=== PATIENT | male | born 1975 | race Caucasian/White ===

== ENCOUNTER 2022-12-16 21:16 | Emergency (ER) | payer SELFPAY ==
[2022-12-16 21:32] VITALS: TEMP 97.3
--- NOTE | 2022-12-16 21:49 | ERPHSYRPT ---
- History of Present Illness Time Seen by Provider: 12/16/22 21:49 Historian: patient Exam Limitations: no limitations Patient Subjective Stated Complaint: pt states that I have this pain that feels like a balloon Triage Nursing Assessment: ambulated into the er; pt is axo x4; c/o RUQ pain; denies N/V/D; skin PDW; no respiratory distress present; mucus membranes pink and moist Physician History: This a 47-year-old white male patient who has had no abdominal surgeries in the past and presents with intermittent right upper quadrant pain for 2 months which worsened over the last 24 hours. There is been no nausea or vomiting. He does feel bloated belching gassy. He denies chest pain. He does not have shortness of breath. Timing/Duration: intermittent, worse (Worse today), other (Intermittently for 1 month) Pain Radiation: no radiation Severity of Pain-Max: moderate Severity of Pain-Current: none Associated Symptoms: denies symptoms Previous symptoms: same symptoms as today Allergies/Adverse Reactions: No Known Drug Allergies Allergy (Unverified 12/16/22 21:25) Home Medications: No Reportable Medications [No Reported Medications] 12/16/22 [History] Hx Tetanus, Diphtheria Vaccination/Date Given: No Hx Influenza Vaccination/Date Given: No Hx Pneumococcal Vaccination/Date Given: No Travel Risk - International Travel Have you traveled outside of the country in past 3 weeks: No - Coronavirus Screening Are you exhibiting any of the following symptoms?: No Close contact with a COVID-19 positive Pt in past 14-21 Days: No - Vaccine Status Have you recieved a Covid-19 vaccination: No - Review of Systems Constitutional: No Symptoms Eyes: No Symptoms Ears, Nose, & Throat: No Symptoms Respiratory: No Symptoms Cardiac: No Symptoms Abdominal/Gastrointestinal: Abdominal Pain (Right upper quadrant) Genitourinary Symptoms: No Symptoms Musculoskeletal: No Symptoms Skin: No Symptoms Neurological: No Symptoms Psychological: No Symptoms Endocrine: No Symptoms Hematologic/Lymphatic: No Symptoms Immunological/Allergic: No Symptoms All Other Systems: Reviewed and Negative - Past Medical History Pertinent Past Medical History: No - Past Surgical History Past Surgical History: Yes Gastrointestinal: Hernia Repair - Social History Smoking Status: Current every day smoker How long have you smoked: 25 years Exposure to second hand smoke: Yes Drug Use: none Patient Lives Alone: No - Nursing Vital Signs Nursing Vital Signs: Initial Vital Signs Blood Pressure 139/104 12/16/22 21:25 O2 Sat by Pulse Oximetry 96 12/16/22 21:25 Pain Scale Pain Intensity 4 - Physical Exam General Appearance: no apparent distress, alert, anxiety Eye Exam: PERRL/EOMI, eyes nml inspection Ears, Nose, Throat Exam: normal ENT inspection, moist mucous membranes Neck Exam: normal inspection, non-tender, supple, full range of motion Respiratory Exam: normal breath sounds, lungs clear, airway intact, No chest tenderness, No respiratory distress Cardiovascular Exam: regular rate/rhythm, normal heart sounds, normal peripheral pulses Gastrointestinal/Abdomen Exam: soft, normal bowel sounds, tenderness (Right upper quadrant), guarding (Right upper quadrant) Rectal Exam: not done Back Exam: normal inspection, normal range of motion, No CVA tenderness, No vertebral tenderness Extremity Exam: normal inspection, normal range of motion, pelvis stable Neurologic Exam: alert, oriented x 3, cooperative, traffic 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 II-XII nml as tested, normal mood/affect, nml cerebellar function, nml station & gait, sensation nml Skin Exam: normal color, warm, dry Lymphatic Exam: No adenopathy SpO2 Interpretation: normal SpO2: 97 O2 Delivery: Room Air - Course Nursing assessment & vital signs reviewed: Yes Ordered Tests: Active Orders 24 hr Category Date Time Status IV Insertion STAT Care 12/16/22 21:40 Active ABDOMEN AND PELVIS W/0 CONTRAS [CT] Stat Exams 12/16/22 22:35 Completed AMYLASE Stat Lab 12/16/22 22:30 Completed CBC W DIFF Stat Lab 12/16/22 22:30 Completed CMP Stat Lab 12/16/22 22:30 Completed LIPASE Stat Lab 12/16/22 22:30 Completed UA W/RFX UR CULTURE Stat Lab 12/16/22 21:40 Completed Medication Summary Discontinued Medications Generic Name Dose Route Start Last Admin Trade Name Freq PRN Reason Stop Dose Admin Hydromorphone HCl 1 mg 12/16/22 22:08 12/16/22 22:15 Hydromorphone 1 Mg/1ml Inj IV 12/16/22 22:09 1 mg STAT ONE Administration Hydromorphone HCl Confirm 12/16/22 22:12 Hydromorphone 1 Mg/1ml Inj Administered 12/16/22 22:13 Dose 1 mg .ROUTE .STK-MED ONE Sodium Chloride 1,000 mls @ 999 mls/hr 12/16/22 22:08 12/16/22 22:16 Sodium Chloride 0.9% 1000 Ml IV 12/16/22 23:08 999 mls/hr .Q1H1M STA Administration Sodium Chloride Confirm 12/16/22 22:12 Sodium Chloride 0.9% 1000 Ml Administered 12/16/22 22:13 Dose 1,000 mls @ ud .ROUTE .STK-MED ONE Ondansetron HCl 4 mg 12/16/22 22:08 12/16/22 22:15 Ondansetron Hcl 4 Mg/2 Ml Vial IV 12/16/22 22:09 4 mg STAT ONE Administration Ondansetron HCl Confirm 12/16/22 22:12 Ondansetron Hcl 4 Mg/2 Ml Vial Administered 12/16/22 22:13 Dose 4 mg .ROUTE .STK-MED ONE Lab/Rad Data: Laboratory Result Diagrams 12/16/22 22:30 12/16/22 22:30 Laboratory Results 12/16/22 12/16/22 12/16/22 Range/Units 22:30 22:30 21:40 WBC 8.9 (4.0-10.5) x10^3/uL RBC 5.12 (4.1-5.6) x10^6/uL Hgb 16.3 (12.5-18.0) g/dL Hct 46.3 (42-50) % MCV 90.4 (78-100) fL MCH 31.8 (26-32) pg MCHC 35.2 (32-36) g/dL RDW 12.3 (11.5-14.0) % Plt Count 215 (150-450) x10^3/uL MPV 10.0 (7.5-11.0) fL Gran % 60.8 (36.0-66.0) % Immature Gran % (Auto) 0.5 H (0.00-0.4) % Nucleat RBC Rel Count 0.0 (0.00-0.1) % Eos # (Auto) 0.32 (0-0.5) x10^3/uL Immature Gran # (Auto) 0.04 H (0.00-0.03) x10^3u/L Absolute Lymphs (auto) 2.51 (1.0-4.6) x10^3/uL Absolute Monos (auto) 0.56 (0.0-1.3) x10^3/uL Absolute Nucleated RBC 0.00 (0.00-0.01) x10^3u/L Lymphocytes % 28.3 (24.0-44.0) % Monocytes % 6.3 (0.0-12.0) % Eosinophils % 3.6 (0.00-5.0) % Basophils % 0.5 (0.0-0.4) % Absolute Granulocytes 5.41 (1.4-6.9) x10^3/uL Basophils # 0.04 (0-0.4) x10^3/uL Sodium 136 L (137-145) mmol/L Potassium 3.5 (3.5-5.1) mmol/L Chloride 106 (98-107) mmol/L Carbon Dioxide 22 (22-30) mmol/L Anion Gap 11.5 (5-15) MEQ/L BUN 13 (9-20) mg/dL Creatinine 0.88 (0.66-1.25) mg/dL Estimated GFR > 60.0 ML/MIN Glucose 90 (74-106) mg/dL Calcium 8.2 L (8.4-10.2) mg/dL Total Bilirubin 0.40 (0.2-1.3) mg/dL AST 27 (17-59) U/L ALT 31 (0-50) U/L Alkaline Phosphatase 70 (38-126) U/L Serum Total Protein 5.9 L (6.3-8.2) g/dL Albumin 3.4 L (3.5-5.0) g/dL Amylase 37 (30-110) U/L Lipase 43 (23-300) U/L Urine Color Yellow (Yellow) Urine Appearance Clear (Clear) Urine pH 6.5 (4.6-8.0) Ur Specific [place] 1.025 (1.005-1.030) Urine Protein Negative (Negative) Urine Glucose (UA) Negative (Negative) mg/dL Urine Ketones Negative (Negative) Urine Blood Negative (Negative) Urine Nitrite Negative (Negative) Urine Bilirubin Negative (Negative) Urine Urobilinogen 1.0 A (0.2) mg/dL Ur Leukocyte Esterase Negative (Negative) U Hyaline Cast (Auto) NONE SEEN (0-2) /LPF Urine Microscopic RBC 0-2 (0-5) /HPF Urine Microscopic WBC 0-2 (0-5) /HPF Ur Epithelial Cells None Seen (None Seen) /HPF Urine Bacteria None Seen (None Seen) /HPF Urine Culture Reflexed NO (NO) - Progress Progress: improved, pain not gone completely, re-examined Progress Note: 12/16/22 23:25 CT scan of the abdomen pelvis without contrast shows mild hepatomegaly otherwise normal CT scan of the abdomen pelvis without contrast. This was interpreted by the radiologist and I reviewed the impression. This patient's medical issue is 1 of moderate complexity. The level of complexity and the work-up performed is based on review of the patient's past medical history, review of the patient's medication list, review of the patient's drug allergy list, history of present illness and physical findings on examination. The work-up in this patient includes placement of an intravenous line, infusion of saline solution, infusion of Zofran, infusion of Dilaudid IV, CBC, CMP, amylase, lipase, urinalysis. I reviewed the results of the above- stated work-up. There is no evidence of any acute abnormality. Patient will be discharged to home with 2 take-home Sar[place] pain medications and instructions to avoid fatty greasy spicy foods and to call his primary care provider tomorrow morning, 12/17/2022, to make arrangements for further evaluation management. 12/16/22 23:27 Counseled pt/family regarding: lab results, diagnosis, need for follow-up, rad results Medical Desision Making - Independent Historian Additional History obtained from: Spouse - Diagnostic Testing Diagnostic test were ordered, analyzed, and reviewed by me: Yes Radiological Interpretation: Reviewed by me, Teleradiologist Report - Risk of complications Minimal Risk: Minimal risk of morbidity - Departure Departure Disposition: Home Clinical Impression: Right upper quadrant abdominal pain, Hepatomegaly Condition: Stable Critical Care Time: No Additional Instructions: Avoid fatty greasy spicy foods. Drink plenty of clear liquids. Call your primary care provider tomorrow morning, 12/17/2022, to make arrangements for further evaluation and management.
[2022-12-16 21:54] LABS: Appearance Clear (Clear); Bacteria None Seen /HPF (None Seen); Bilirubin Negative (Negative); Blood Negative (Negative); Epithelial Cells None Seen /HPF (None Seen); Glucose, Urine Negative (Negative); Hyaline Casts NONE SEEN /LPF (0-2); Ketones Negative (Negative); Leukocyte Esterase Negative (Negative); Nitrite Negative (Negative); Ph 6.5 (4.6-8.0); Protein,Urine Dip Negative (Negative); RBC 0-2 /HPF (0-5); Specific Gravity 1.025 (1.005-1.030); WBC 0-2 /HPF (0-5)
[2022-12-16 21:57] LABS: ADD URINE CULTURE? NO (NO)
[2022-12-16] MEDS ORDERED: Hydromorphone 1 mg/ml Injection IV ONE (22:08)
[2022-12-16] MEDS ORDERED: Zofran 4 MG/2 ML VIAL IV ONE (22:08)
[2022-12-16] MEDS ORDERED: Sodium Chloride 0.9% 1000 ML 1,000 ML IV STA (22:08)
[2022-12-16] MEDS ORDERED: Sodium Chloride 0.9% 1000 ML 1,000 ML ONE (22:12)
[2022-12-16] MEDS ORDERED: Zofran 4 MG/2 ML VIAL ONE (22:12)
[2022-12-16] MEDS ORDERED: Hydromorphone 1 mg/ml Injection ONE (22:12)
[2022-12-16 22:32] LABS: Absolute Neutrophil Ct (ANC) 5.41 x10^3/uL (1.4-6.9); BASOPHIL % 0.5 % (0.0-0.4); Basophil (Absolute #) 0.04 x10^3/uL (0-0.4); Eosinophil % 3.6 % (0.00-5.0); Eosinophil (Absolute #) 0.32 x10^3/uL (0-0.5); Hematocrit 46.3 % (42-50); Hemoglobin 16.3 g/dL (12.5-18.0); IMMATURE GRAN # 0.04 x10^3u/L (0.00-0.03); IMMATURE GRAN % 0.5 % (0.00-0.4); Lymphocyte (Absolute #) 2.51 x10^3/uL (1.0-4.6); Lymphocytes % 28.3 % (24.0-44.0); Mean Cell Volume 90.4 fL (78-100); Mean Corpuscular Hemoglobin 31.8 pg (26-32); Mean Corpuscular Hgb Concent. 35.2 g/dL (32-36); Monocyte (Absolute #) 0.56 x10^3/uL (0.0-1.3); Monocytes % 6.3 % (0.0-12.0); Neutrophil % 60.8 % (36.0-66.0); Platelet Count 215 x10^3/uL (150-450); Red Blood Count 5.12 x10^6/uL (4.1-5.6); Red Cell Distribution Width 12.3 % (11.5-14.0); White Blood Count 8.9 x10^3/uL (4.0-10.5)
[2022-12-16 22:45] LABS: ALBUMIN 3.4 g/dL (3.5-5.0); ALKALINE PHOSPHATASE 70 U/L (38-126); AMYLASE 37 U/L (30-110); ANION GAP 11.5 MEQ/L (5-15); BLOOD UREA NITROGEN 13 mg/dL (9-20); CHLORIDE 106 mmol/L (98-107); Calcium 8.2 mg/dL (8.4-10.2); Carbon Dioxide 22 mmol/L (22-30); Creatinine 1 0.88 mg/dL (0.66-1.25); EST GLOMERULAR FILTRATION RATE > 60.0 ML/MIN; Glucose 90 mg/dL (74-106); LIPASE 43 U/L (23-300); Potassium 3.5 mmol/L (3.5-5.1); SGOT/AST 27 U/L (17-59); SGPT/ALT 31 U/L (0-50); SODIUM 136 mmol/L (137-145); Total Protein 5.9 g/dL (6.3-8.2)
--- NOTE | 2022-12-16 23:24 | XRAY ---
CLINICAL HISTORY:RUQ ABD pain COMPARISON:None. TECHNIQUE:CT of the abdomen and pelvis was performed with axial images as well as sagittal and coronal reconstruction images without intravenous contrast. CTDI: 6.5 mGy, DLP 339.67 mGy*cm. FINDINGS: Scan through the lower chest reveals unremarkable lung basis and heart. The liver is of enlarged size and measures 17.5 cm. No focal or diffuse parenchymal abnormality. The spleen, pancreas, adrenal glands are unremarkable. The kidneys are unremarkable. They are normal in size and shape. No calculi or hydronephrosis. The gallbladder is distended and shows no definite stones. There is no evidence of wall thickening/ pericholecystic collection. The ascending colon, the transverse colon, the descending colon, visualized small bowel loops are unremarkable. There is no evidence of significant enlargement of the mesenteric or retroperitoneal lymph nodes. The urinary bladder is unremarkable. The rectosigmoid colon is unremarkable. The prostate is of average size. The pelvic vasculature is unremarkable. No evidence of pelvic lymphadenopathy. No definite bony abnormalities could be depicted. No ascites. IMPRESSION: Mild hepatomegaly, otherwise, unremarkable CT examination for the abdomen and male pelvis. Electronically Signed by: Fran Prieto MD. (12/16/2022 22:22:58 PUBLIC SAFETY OFFICER)
[2022-12-16] MEDS ORDERED: NORCO 5/325 MG PO ONE (23:29)
[2022-12-16] MEDS ORDERED: NORCO 5/325 MG ONE (23:32)
[2022-12-16 23:37] VITALS: BP 131/96; RESP 14; O2SAT 96
[2022-12-16 23:40] VITALS: PULSE 75
== END 2022-12-16 23:50 | disposition home or self-care (01) ==
LOC: ED 21:16
DX: R10.11 Right upper quadrant pain (principal); R16.0 Hepatomegaly, not elsewhere classified; Z28.310 Unvaccinated for COVID-19; Z72.0 Tobacco use
CPT/HCPCS: 36000; 36415; 74176; 80053; 81001; 82150; 83690; 85025; 96360; 96374; 96375; 99284; J1170; J2405; A9270-GY

== ENCOUNTER 2023-01-21 05:57 | Day surgery (SDC) | payer MEDICAID ==
[2023-01-21 06:39] VITALS: RESP 18; TEMP 97.8
[2023-01-21] MEDS ORDERED: Xylocaine-Mpf 2% 5 Ml Vial ONE (06:51)
[2023-01-21] MEDS ORDERED: DIPRIVAN 200 MG/20 ML IV ONE (06:51)
[2023-01-21] MEDS ORDERED: Lactated Ringers 1,000 ML IV SCH (07:00)
--- NOTE | 2023-01-21 08:03 | OP ---
SURGERY DATE/TIME: 01/21/2023 0725 PREOPERATIVE DIAGNOSIS: Right upper quadrant abdominal pain. POSTOPERATIVE DIAGNOSIS: Moderate antral gastritis. PROCEDURE: Esophagogastroduodenoscopy with cold forceps biopsy. SURGEON: Dr. Orozco. ANESTHESIA: Medications were given by the anesthesia department. BRIEF HISTORY: The patient is a 47-year-old white male patient with right upper quadrant abdominal pain that has been going on for more than six weeks. The patient reports that [id number] antacid medications have lost their effect. He has been on omeprazole with some improvement. He has had gallbladder ultrasound and HIDA scan which have been negative for gallbladder disease. The patient was felt to need to have endoscopic evaluation. He was appraised of the risks of the procedure including the risk of perforation, phlebitis, untoward reaction to medication, bleeding, missed lesions, sore throat and vocal cord injury. The patient verbalized his understanding and desired to have the procedure performed. DESCRIPTION OF PROCEDURE: The patient was given the medications by the anesthesia department. He had continuous pulse oximetry, ECG monitoring and intermittent blood pressure monitoring during the examination. He was placed in the left lateral decubitus position. A bite block was placed. The flexible Olympus gastroscope was used to intubate the oropharynx. A view of the larynx was normal. The scope was easily introduced in the esophagus which appeared to be normal throughout its length. The stomach was entered where normal gastric rugal folds were seen and these distended nicely with insufflation of air. The scope was passed along the greater curvature of the stomach to the antrum. There appeared to be some patchy areas of erythema here. The scope is advanced to the pylorus and the pylorus is intubated. The duodenum inspected and found to be normal. The scope is withdrawn towards the stomach. A retroflex view was obtained of the lesser curvature, fundus and cardia regions of the stomach which appeared to be essentially normal. The scope was then redirected towards the gastric antrum and biopsies obtained to rule out the presence of Helicobacter pylori-type organisms. The scope was then removed from the patient who tolerated the procedure well and was sent back to outpatient recovery in good condition.
--- NOTE | 2023-01-21 08:50 | XRAY ---
Indication: Status post endoscopy. Perforation. Comparison: None Two-view abdomen demonstrates minimal/mild air distended small and large bowel loops consistent with recent endoscopy. No focal bowel dilatation, obstruction, or large free air. Solid organs and osseous structures unremarkable.
[2023-01-21 09:20] VITALS: BP 144/104; PULSE 63; O2SAT 97
== END 2023-01-24 09:25 | disposition home or self-care (01) ==
LOC: SDC 05:57
PROVIDERS: ATTEND Family Medicine
DX: K29.70 Gastritis, unspecified, without bleeding (principal); R10.11 Right upper quadrant pain
CPT/HCPCS: 74021; J2704

== ENCOUNTER 2023-09-16 06:56 | Emergency (ER) | payer SELFPAY ==
[2023-09-16] MEDS ORDERED: Norflex 60 MG/2 ML ONE (07:35)
[2023-09-16] MEDS ORDERED: solu-MEDROL ONE (07:35)
[2023-09-16] MEDS ORDERED: Hydromorphone 1 mg/ml Injection ONE (07:35)
[2023-09-16] MEDS ORDERED: Sterile H2O 10 ml IJ ONE (07:35)
[2023-09-16] MEDS ORDERED: ZOFRAN ODT 4 MG ONE (07:35)
--- NOTE | 2023-09-16 07:36 | ERPHSYRPT ---
- History of Present Illness Time Seen by Provider: 09/16/23 07:15 Source: patient, family Exam Limitations: no limitations Patient Subjective Stated Complaint: Back pain Triage Nursing Assessment: Patient ambulated back to ED and transferred self to bed. Patient A+O X3. Patient's skin pink, warm and dry. Patient complains of right lower back pain into right buttock and down right leg 10/10. Patient states the pain started 3 days ago and has gotten worse. Patient denies any trauma or injury. Patient states he has to drive long distances for work and traveled a lot of miles last week in a car. Physician History: This is a 47-year-old white male patient who has significant lower back pain. 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 Approximately 4 to 5 days ago he started having this significant lower back pain. Patient has an appointment to see a chiropractor later today. He could not wait. Patient has no urinary incontinence. He has no bowel incontinence. He has no numbness in his feet. His pain is right side which goes down into his right buttock and into the posterior upper leg. He takes no medications chronically and he has no known drug allergies. Patient did not suffer any acute trauma or fall. Timing/Duration: day(s) (4 to 5 days), worse Method of Injury: other (Long driving trips for his work) Quality: sharp, stabbing Back Pain Location: paraspinous muscles (Lumbar level) Back Pain Radiation: buttocks, upper legs (Posteriorly) Severity of Pain-Max: moderate Severity of Pain-Current: moderate Modifying Factors: Improves With: movement (Worsens) Associated Symptoms: lower back pain, muscle spasms (Lumbar level right side), No urinary incontinence, No loss of bowel control, No constipation, No numbness in legs/feet Previous symptoms: no prior history, no recent treatment Allergies/Adverse Reactions: Milk Containing Products (Dairy) Allergy (Unknown, Verified 09/16/23 07:01) Hx Tetanus, Diphtheria Vaccination/Date Given: No Hx Influenza Vaccination/Date Given: No Hx Pneumococcal Vaccination/Date Given: No Immunizations Up to Date: Yes Travel Risk - International Travel Have you traveled outside of the country in past 3 weeks: No - Emerging Infectious Disease Are you exhibiting symptoms associated with any current EIDs: No - Review of Systems Constitutional: No Symptoms Eyes: No Symptoms Ears, Nose, & Throat: No Symptoms Respiratory: No Symptoms Cardiac: No Symptoms Abdominal/Gastrointestinal: No Symptoms Genitourinary Symptoms: No Symptoms Musculoskeletal: Back Pain (Bar level right side) Skin: No Symptoms Neurological: No Symptoms Psychological: No Symptoms Endocrine: No Symptoms Hematologic/Lymphatic: No Symptoms Immunological/Allergic: No Symptoms All Other Systems: Reviewed and Negative - Past Medical History Pertinent Past Medical History: Yes Neurological History: No Pertinent History ENT History: No Pertinent History Cardiac History: No Pertinent History Respiratory History: No Pertinent History Endocrine Medical History: No Pertinent History Musculoskeletal History: No Pertinent History GI Medical History: GERD History: No Pertinent History Psycho-Social History: No Pertinent History Male Reproductive Disorders: No Pertinent History Other Medical History: immunodeficiency as an infant, 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 - Past Surgical History Past Surgical History: Yes Neuro Surgical History: No Pertinent History Cardiac: No Pertinent History Respiratory: No Pertinent History Gastrointestinal: Hernia Repair Genitourinary: No Pertinent History Musculoskeletal: Other Male Surgical History: No Pertinent History Other Surgical History: bilateral wrist , 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 - Social History Smoking Status: Current every day smoker How long have you smoked: 30 years Exposure to second hand smoke: Yes Drug Use: none Patient Lives Alone: No - Nursing Vital Signs Nursing Vital Signs: Initial Vital Signs Temperature 97.2 F 09/16/23 07:02 Pulse Rate 65 09/16/23 07:02 Respiratory Rate 18 09/16/23 07:02 Blood Pressure 173/92 09/16/23 07:02 O2 Sat by Pulse Oximetry 99 09/16/23 07:02 Pain Scale Pain Intensity 10 - Physical Exam General Appearance: mild distress, alert, anxiety Eye Exam: PERRL/EOMI, eyes nml inspection Ears, Nose, Throat Exam: normal ENT inspection, moist mucous membranes Neck Exam: normal inspection, non-tender, supple, full range of motion Respiratory Exam: airway intact, No chest tenderness, No respiratory distress Gastrointestinal Exam: No tenderness Rectal Exam: not done Back Exam: normal inspection, decreased range of motion, muscle spasm (Bar level right side), No CVA tenderness Extremity Exam: normal inspection, normal range of motion, pelvis stable Neurologic Exam: alert, oriented x 3, cooperative, 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 tested Skin Exam: normal color, warm, dry Lymphatic Exam: No adenopathy SpO2 Interpretation: normal SpO2: 99 O2 Delivery: Room Air - Course Nursing assessment & vital signs reviewed: Yes Ordered Tests: Active Orders 24 hr Category Date Time Status D-DIMER QUANTITATIVE Stat Lab 09/16/23 08:27 Ordered Medication Summary Discontinued Medications Generic Name Dose Route Start Last Admin Trade Name Hugh PRN Reason Stop Dose Admin Methylprednisolone Sodium 0 mg 09/16/23 07:26 09/16/23 07:38 Succinate 125 mg/ Sterile IM 09/16/23 07:27 125 mg Water 2 ml STAT ONE Administration Hydromorphone HCl 1 mg 09/16/23 07:26 09/16/23 07:39 Hydromorphone 1 Mg/1ml Inj IM 09/16/23 07:27 1 mg STAT ONE Administration Hydromorphone HCl Confirm 09/16/23 07:35 Hydromorphone 1 Mg/1ml Inj Administered 09/16/23 07:36 Dose 1 mg .ROUTE .STK-MED ONE Methylprednisolone Sodium Succinate Confirm 09/16/23 07:35 Methylprednis Sod Succ 125 Mg/2 Ml Vial Administered 09/16/23 07:36 Dose 125 mg .ROUTE .STK-MED ONE Ondansetron HCl 4 mg 09/16/23 07:27 09/16/23 07:38 Zofran 4 Mg/Udtablet Orally Disintegrating PO 09/16/23 07:28 4 mg STAT ONE Administration Ondansetron HCl Confirm 09/16/23 07:35 Zofran 4 Mg/Udtablet Orally Disintegrating Administered 09/16/23 07:36 Dose 4 mg .ROUTE .STK-MED ONE Orphenadrine Citrate 60 mg 09/16/23 07:27 09/16/23 07:39 Orphenadrine Citrate 60 Mg/2 Ml Vial IM 09/16/23 07:28 60 mg STAT ONE Administration Orphenadrine Citrate Confirm 09/16/23 07:35 Orphenadrine Citrate 60 Mg/2 Ml Vial Administered 09/16/23 07:36 Dose 60 mg .ROUTE .STK-MED ONE Sterile Water Confirm 09/16/23 07:35 Water For Injection,Sterile 10 Ml Vial Administered 09/16/23 07:36 Dose 10 ml IJ .STK-MED ONE - Progress Progress: improved, pain not gone completely Progress Note: 09/16/23 07:34 My medical decision making and the assignment of low complexity to this patient's medical issue today is based on review of the patient's past medical history, review of the patient's medication list, review the patient drug allergy list, history present illness and physical findings on examination. The workup in this patient does not require laboratory radiographic studies. Patient did not experience any acute fall or trauma. We will treat him for sciatica. Differential diagnosis is sciatica, muscle skeletal pain 09/16/23 08:26 Clinically, the patient states his hip pain is much improved after the injectable pain medication we provided him. He does state now, which is the first time he had mentioned to me that he is still having some right calf pain. 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 If it is positive, we will order an ultrasound of the right lower extremity. 09/16/23 08:29 Patient is refusing the D-dimer test. Patient is actually being somewhat rude and questioning whether I know what sciatica is. We will have him sign a refusal of test. He is aware that this test is a screening test to determine whether or not he might have a blood clot in also determine whether or not we should be ordering an ultrasound of his right lower extremity to determine if a blood clot is present. He will sign a refusal of test form Counseled pt/family regarding: diagnosis, need for follow-up Medical Desision Making - Independent Historian Additional History obtained from: Spouse - Diagnostic Testing Diagnostic test were ordered, analyzed, and reviewed by me: No - Risk of complications The pt has a mod risk of morbidity or mortality based on: Need for prescription drug management - Departure Departure Disposition: Home Clinical Impression: Sciatica Condition: Stable Critical Care Time: No Referrals: ALEXANDER BAUTISTA NP [Primary Care Provider] - Follow up/PCP as directed Instructions: Low Back Pain (DC), Sciatica (DC) Additional Instructions: Take your medication as prescribed. Call your chiropractor today to see if they want you to follow-up with them or reschedule your appointment. Call your primary care provider today, 09/16/2023, to arrange a follow-up appointment to be seen in the next 3 to 5 days. Prescriptions: Oxycodone HCl/Acetaminophen [Percocet 5-325 mg Tablet] 1 each PO Q8H PRN PRN #6 tablet MDD 3 PRN Reason: Moderate To Severe Pain Prednisone 10 mg [Deltasone 10 mg] 10 mg PO TID #12 tablet
[2023-09-16] MEDS: solu-MEDROL 125 MG, Sterile H2O 10 ml 2 ML IM ONE (07:38)
[2023-09-16] MEDS: ZOFRAN ODT 4 MG PO ONE (07:38)
[2023-09-16] MEDS: Norflex 60 MG/2 ML IM ONE (07:39)
[2023-09-16] MEDS: Hydromorphone 1 mg/ml Injection IM ONE (07:39)
[2023-09-16 08:01] VITALS: RESP 18; TEMP 97.2
[2023-09-16 08:56] VITALS: BP 138/72; PULSE 97; O2SAT 96
== END 2023-09-16 08:35 | disposition home or self-care (01) ==
LOC: ED 06:56
DX: M54.31 Sciatica, right side (principal); Z79.52 Long term (current) use of systemic steroids; Z79.891 Long term (current) use of opiate analgesic; Z72.0 Tobacco use
CPT/HCPCS: 96372; 99283; J1170; J2360; J2919; Q0162

== ENCOUNTER 2023-09-18 07:15 | Emergency (ER) | payer SELFPAY ==
[2023-09-18 07:34] VITALS: BP 143/89; PULSE 87; RESP 20; TEMP 97.9; O2SAT 98
--- NOTE | 2023-09-18 07:58 | ERPHSYRPT ---
- History of Present Illness Time Seen by Provider: 09/18/23 07:53 Source: patient, family Patient Subjective Stated Complaint: Back pain Triage Nursing Assessment: Patient ambulated back to ED and transferred self to bed. Patient A+O X3. Patient's skin pink, warm and dry. Patient complains of right lower back/buttock pain down right leg 9/10. Patient was seen in ER on Tuesday and prescribed [place] and Prednison. Patient states he also went to chiropractor and has tried several OTC remedies reccomended by her. Physician History: Patient is a 47-year-old male recently was seen in ER for right-sided sciatica pain, also went and saw chiropractor on Tuesday afternoon without any help. His pain got worse and now is muscle in the calf area and thigh area is getting tired he has a hard time walking sleeping so he came back to the emergency room. Patient is very uncomfortable in ER unable to sit down stand or lie down. She denies any bowel bladder disturbance. Timing/Duration: day(s) (2 days) Method of Injury: unknown Quality: stabbing, pressure Back Pain Location: lumbar spine Back Pain Radiation: buttocks, upper legs, lower legs, feet Severity of Pain-Max: moderate Severity of Pain-Current: severe Modifying Factors: Improves With: nothing Associated Symptoms: denies symptoms Previous symptoms: same symptoms as today Allergies/Adverse Reactions: Milk Containing Products (Dairy) Allergy (Unknown, Verified 09/18/23 07:25) Hx Tetanus, Diphtheria Vaccination/Date Given: No Hx Influenza Vaccination/Date Given: No Hx Pneumococcal Vaccination/Date Given: No Immunizations Up to Date: Yes Travel Risk - International Travel Have you traveled outside of the country in past 3 weeks: No - Emerging Infectious Disease Are you exhibiting symptoms associated with any current EIDs: No - Review of Systems Constitutional: No Symptoms Eyes: No Symptoms Ears, Nose, & Throat: No Symptoms Respiratory: No Symptoms Cardiac: No Symptoms Abdominal/Gastrointestinal: No Symptoms Genitourinary Symptoms: No Symptoms Musculoskeletal: Back Pain Skin: No Symptoms Neurological: No Symptoms Psychological: No Symptoms - Past Medical History Pertinent Past Medical History: Yes Neurological History: No Pertinent History ENT History: No Pertinent History Cardiac History: No Pertinent History Respiratory History: No Pertinent History Endocrine Medical History: No Pertinent History Musculoskeletal History: No Pertinent History GI Medical History: GERD History: No Pertinent History Psycho-Social History: No Pertinent History Male Reproductive Disorders: No Pertinent History Other Medical History: immunodeficiency as an infant, 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 - Past Surgical History Past Surgical History: Yes Neuro Surgical History: No Pertinent History Cardiac: No Pertinent History Respiratory: No Pertinent History Gastrointestinal: Hernia Repair Genitourinary: No Pertinent History Musculoskeletal: Other Male Surgical History: No Pertinent History Other Surgical History: bilateral wrist , 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 - Social History Smoking Status: Never smoker How long have you smoked: 30 years Exposure to second hand smoke: No Drug Use: none Patient Lives Alone: No - Nursing Vital Signs Nursing Vital Signs: Initial Vital Signs Temperature 97.9 F 09/18/23 07:26 Pulse Rate 87 09/18/23 07:26 Respiratory Rate 20 09/18/23 07:26 Blood Pressure 143/89 09/18/23 07:26 O2 Sat by Pulse Oximetry 98 09/18/23 07:26 Pain Scale Pain Intensity 9 - Physical Exam General Appearance: moderate distress Eye Exam: PERRL/EOMI Ears, Nose, Throat Exam: normal ENT inspection Neck Exam: normal inspection Respiratory Exam: normal breath sounds Cardiovascular Exam: regular rate/rhythm Gastrointestinal Exam: soft Back Exam: normal inspection, decreased range of motion, muscle spasm Extremity Exam: normal inspection, limited range of motion, No calf tenderness Neurologic Exam: alert, oriented x 3, cooperative Skin Exam: normal color SpO2 Interpretation: normal SpO2: 98 O2 Delivery: Room Air - Course Nursing assessment & vital signs reviewed: Yes Ordered Tests: Medication Summary Discontinued Medications Generic Name Dose Route Start Last Admin Trade Name Freq PRN Reason Stop Dose Admin Ketorolac Tromethamine 60 mg 09/18/23 07:50 09/18/23 08:05 Ketorolac Tromethamine 30 Mg/Ml Inj IM 09/18/23 07:51 60 mg STAT ONE Administration Ketorolac Tromethamine Confirm 09/18/23 08:05 Ketorolac Tromethamine 30 Mg/Ml Inj Administered 09/18/23 08:06 Dose 60 mg .ROUTE .STK-MED ONE Orphenadrine Citrate 60 mg 09/18/23 07:50 09/18/23 08:06 Orphenadrine Citrate 60 Mg/2 Ml Vial IM 09/18/23 07:51 60 mg STAT ONE Administration Orphenadrine Citrate Confirm 09/18/23 08:05 Orphenadrine Citrate 60 Mg/2 Ml Vial Administered 09/18/23 08:06 Dose 60 mg .ROUTE .STK-MED ONE - Progress Progress: improved, pain not gone completely Counseled pt/family regarding: diagnosis, need for follow-up Medical Desision Making - Independent Historian Additional History obtained from: Family - Diagnostic Testing Diagnostic test were ordered, analyzed, and reviewed by me: No - Risk of complications Minimal Risk: Minimal risk of morbidity - Departure Departure Disposition: Home Clinical Impression: Sciatica Qualifiers: Laterality: right Qualified Code(s): M54.31 - Sciatica, right side Condition: Stable Critical Care Time: No Referrals: ALEXANDER BAUTISTA NP [Primary Care Provider] - Follow Up with PCP/3 days Instructions: Low Back Pain (DC), Sciatica (DC), Active Range of Motion Exercises, Back and Hips, Back Stretches Standing or Seated, Sciatica Exercises, Back Extension Exercises, Back Flexion Stretching Exercises Additional Instructions: Apply Voltaren gel, and then put ice pack and then do a circular massage in affected area. Also follow the back exercises which is given to you. Discharge/Care Plan LUISDILLON TINY was seen on 09/18/23 in the Emergency Room. The patient was counseled regarding Diagnosis,Lab results, Imaging studies, need for follow up and when to return to the Emergency Room. Prescriptions given: Discharge Note I have spoken with the patient and/or caregivers. I have explained the patient's condition, diagnosis and treatment plan based on the information available to me at this time. I have answered the patient's and/or caregiver's questions and addressed any concerns. The patient and/or caregivers have as good understanding of the patient's diagnosis, condition and treatment plan as can be expected at this point. The vital signs have been stable. The patient's condition is stable and appropriate for discharge from the emergency department. The patient will pursue further outpatient evaluation with the primary care physician or other designated or consulting physician as outlined in the discharge instructions. The patient and/or caregivers are agreeable to this plan of care and follow-up instructions have been explained in detail. The patient and/or caregivers have received these instruction. The patient/and or caregivers are aware that any significant change in condition or worsening of symptoms should prompt an immediate return to this or the closest emergency department or call 911. DILLON SMITH was seen on 09/18/23 n the Emergency Room. At that time you were treated for an emergent condition, during your visit Laboratory, Radiology and/or other procedures may have been ordered. It is very important that you follow-up with your Primary Care Physician ALEXANDRE BAUTISTA within the next 24-48 hours to review your Emergency Room visit and the final results of testing that was ordered. Some test results such as Urine Cultures, Blood Cultures, and other cultures if ordered will not be finalized for 24-48 hours. If you do not have a Primary Care Provider please call the medical records department at [phone] to obtain a copy of your results or you may sign into our patient portal to obtain these results by visiting us @ [email or web address] and completing the following steps: 1. Click on the Patient Portal link 2. Click the Patient Self Enrollment Link to complete the enrollment form and entering your 3. Once the enrollment form is completed you will receive an email with a temporary ID and password at the email address you provided. 4. Next choose a user name and password. Your user name must be at least 4 characters long and your password must be at least 4 characters long. 5. Choose a security question from the list and provide your answer to the question. If you already have signed into the Health Portal you may access your Health Care Information 06/12 by the following steps: 1. Login to our website @ [email or web address] 2. Enter your original user name and password. FAQS The [facility] Health Portal is an online tool that contains your Lab Results, Radiology Reports, Visit History, Discharge Instructions and Health Summary Lab and Radiology Results will not be available for 72 hours on the portal. The Portal is a secure site, passwords are encryted and URLs are re-written so they cannot be copied and pasted. You and authorized family members are the only ones who can access your Portal. Also there is a timeout feature that protects your information if you leave the Portal page open. If you have technical difficulty please use the Contact Us link on the page this will allow you to submit any questions you have regarding the Portal or you may contact the Medical Record Department at [phone]. Prescriptions: Cyclobenzaprine HCl 10 mg [Flexeril 10 MG] 10 mg PO TID #30 tablet
[2023-09-18] MEDS: TORAdol 30 mg Injection IM ONE (08:05)
[2023-09-18] MEDS ORDERED: TORAdol 30 mg Injection ONE (08:05)
[2023-09-18] MEDS ORDERED: Norflex 60 MG/2 ML ONE (08:05)
[2023-09-18] MEDS: Norflex 60 MG/2 ML IM ONE (08:06)
== END 2023-09-18 08:43 | disposition home or self-care (01) ==
LOC: ED 07:15
DX: M54.31 Sciatica, right side (principal)
CPT/HCPCS: 96372; 99283; J1885; J2360

== ENCOUNTER 2023-09-18 22:33 | Emergency (ER) | payer SELFPAY ==
[2023-09-18] MEDS ORDERED: TORAdol 30 mg Injection ONE (22:52)
--- NOTE | 2023-09-18 22:53 | ERPHSYRPT ---
- History of Present Illness Time Seen by Provider: 09/18/23 22:41 Source: patient Exam Limitations: no limitations Physician History: For the past 3 days pt has had right posterior pelvic pain radiating to the right foot; admits to lower back ache; denies trauma, dysuria, abdominal pain, fever, chest pain, shortness of air. Allergies/Adverse Reactions: Milk Containing Products (Dairy) Allergy (Unknown, Verified 09/18/23 22:40) Hx Tetanus, Diphtheria Vaccination/Date Given: No Hx Influenza Vaccination/Date Given: No Hx Pneumococcal Vaccination/Date Given: No Travel Risk - Emerging Infectious Disease Are you exhibiting symptoms associated with any current EIDs: No - Review of Systems Constitutional: No Fever Ears, Nose, & Throat: No Ear Pain, No Throat Pain Respiratory: No Dyspnea Cardiac: No Chest Pain Abdominal/Gastrointestinal: No Abdominal Pain, No Nausea, No Vomiting, No Diarrhea Genitourinary Symptoms: No Dysuria Musculoskeletal: Back Pain Skin: No Rash Neurological: No Focal Weakness, No Headache - Past Medical History Pertinent Past Medical History: Yes Neurological History: No Pertinent History ENT History: No Pertinent History Cardiac History: No Pertinent History Respiratory History: No Pertinent History Endocrine Medical History: No Pertinent History Musculoskeletal History: No Pertinent History GI Medical History: GERD History: No Pertinent History Psycho-Social History: No Pertinent History Male Reproductive Disorders: No Pertinent History Other Medical History: immunodeficiency as an , 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 - Past Surgical History Past Surgical History: Yes Neuro Surgical History: No Pertinent History Cardiac: No Pertinent History Respiratory: No Pertinent History Gastrointestinal: Hernia Repair Genitourinary: No Pertinent History Musculoskeletal: Other Male Surgical History: No Pertinent History Other Surgical History: bilateral wrist , 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 - Social History Smoking Status: Never smoker How long have you smoked: 30 years Exposure to second hand smoke: No Drug Use: none Patient Lives Alone: No - Nursing Vital Signs Nursing Vital Signs: Initial Vital Signs Temperature 97.2 F 09/18/23 22:41 Pulse Rate 87 09/18/23 22:41 Respiratory Rate 20 09/18/23 22:41 Blood Pressure 164/100 09/18/23 22:41 O2 Sat by Pulse Oximetry 97 09/18/23 22:41 Pain Scale Pain Intensity 10 - Physical Exam General Appearance: alert Eye Exam: PERRL/EOMI Ears, Nose, Throat Exam: pharynx normal Neck Exam: normal inspection Respiratory Exam: normal breath sounds, airway intact Cardiovascular Exam: normal heart sounds Gastrointestinal Exam: normal bowel sounds Back Exam: vertebral tenderness (mild lower lumbar tenderness) Extremity Exam: normal range of motion, No pedal edema Peripheral Pulses: dorsalis-pedis (R): 2+, dorsalis-pedis (L): 2+ Neurologic Exam: alert, cooperative, normal mood/affect, sensation nml, No motor deficits Skin Exam: warm, dry SpO2 Interpretation: normal SpO2: 97 O2 Delivery: Room Air - CT Exams Pelvis CT Interpretation: Tele-radiologist Report (No acute osseous abnormality is identified. ) Lumbar Spine CT Interpretation: Tele-radiologist Report (Straightening of the lumbar spine l ikely secondary to muscle spasm with mild lumbar spondylosis. Degenerative changes are most marked at L4-L5 level. See rest of report.) Ordered Tests: Active Orders 24 hr Category Date Time Status LUMBAR SPINE W/O [CT] Stat Exams 09/18/23 22:49 Completed PELVIS WITHOUT CONTRAST [CT] Stat Exams 09/18/23 22:49 Completed Medication Summary Discontinued Medications Generic Name Dose Route Start Last Admin Trade Name Hugh PRN Reason Stop Dose Admin Hydrocodone Bitart/Acetaminophen 2 tab 09/19/23 00:36 Hydrocodone/Apap 5/325 1 Tab Tablet PO 09/19/23 00:37 STAT ONE Ketorolac Tromethamine 60 mg 09/18/23 22:49 09/18/23 23:14 Ketorolac Tromethamine 30 Mg/Ml Inj IM 09/18/23 22:50 60 mg STAT ONE Administration Ketorolac Tromethamine Confirm 09/18/23 22:52 Ketorolac Tromethamine 30 Mg/Ml Inj Administered 09/18/23 22:53 Dose 60 mg .ROUTE .STHuan Xiong-MED ONE - Progress Progress: pain not gone completely Counseled pt/family regarding: diagnosis, need for follow-up, rad results Medical Desision Making - Diagnostic Testing Diagnostic test were ordered, analyzed, and reviewed by me: Yes Radiological Interpretation: Teleradiologist Report - Departure Departure Disposition: Home Clinical Impression: Low back pain, Right sided sciatica Condition: Stable Critical Care Time: No Referrals: ALEXANDER BAUTISTA NP [Primary Care Provider] - Follow up/PCP as directed Instructions: Low Back Pain (DC), Sciatica (DC) Additional Instructions: Follow up with private doctor today. Forms: Work/School Release Form Prescriptions: Ketorolac Trometh 10 mg Tab [TORAdol 10 MG TABLET] 10 mg PO Q8H PRN PRN #14 tablet PRN Reason: Pain
[2023-09-18 22:56] VITALS: TEMP 97.2
[2023-09-18] MEDS: TORAdol 30 mg Injection IM ONE (23:14)
--- NOTE | 2023-09-19 00:06 | XRAY ---
CLINICAL HISTORY: pain COMPARISON: CT dated 12/16/2022. TECHNIQUE: CT scan of the pelvis was performed without IV contrast. Coronal and sagittal reconstructive images were also obtained. One of the following dose reduction techniques was utilized for this exam: Automated exposure control, adjustment of the mA and/or kV according to patient size, and use of iterative reconstruction. FINDINGS: Both hip joints are normal. The hip joints reveal normal rounded contour. No evidence of articular collapse. The joint spaces are normal. No loose bodies. There is no evidence of joint effusion. Bilateral sacroiliac joints appear normal. No evidence of obvious fracture is noted at present examination. A tiny bone island is identified within the right femoral head. No suspicious lytic or sclerotic bone lesions. The visualized soft tissues are normal. Mild fluid is identified in bilateral scrotal sacs. IMPRESSION: No acute osseous abnormality is identified. No significant radiological interval change since prior examination. Electronically Signed by: Fran Prieto MD. (09/19/2023 00:02:24 EDT)
--- NOTE | 2023-09-19 00:16 | XRAY ---
CLINICAL HISTORY: pain COMPARISON: CT dated 12/16/2022. TECHNIQUE: CT scan of lumbar spine was performed without contrast. Axial images were obtained with reconstructed coronal and sagittal images and submitted for interpretation. One of the following dose reduction techniques was utilized for this exam: Automated exposure control, adjustment of the mA and/or kV according to patient size, and use of iterative reconstruction. FINDINGS: Straightening of the lumbar spine is identified, likely secondary to muscular spasm. Mild spondylotic changes are identified in the visualized spine as evident by few anterior osteophytes Posterior disc osteophyte complex is identified at L4-L5 level with relatively reduced intervertebral disc space resulting in mild anterior thecal sac indentation and moderate left and mild right neural foraminal stenosis. Normal vertebral bodies height and alignment. Intact vertebral bodies and neural arches. No definite fractures could be detected. Sacralization of L5 vertebral body is identified resulting in transitional vertebra. It is taken as L5 for the purpose of reporting. Segmental disc analysis level by level: L1- L2: There is no significant disc herniation or neural foraminal narrowing visualized. Central canal is unremarkable. No sign of lateral recess stenosis. Nerve roots are normal. L2- L3: There is no significant disc herniation or neural foraminal narrowing visualized. Central canal is unremarkable. No sign of lateral recess stenosis. Nerve roots are normal. L3- L4: There is mild disc bulge identified measuring 2.8 mm resulting in mild anterior thecal sac indentation with mild bile lateral neural foraminal stenosis. L4- L5: Posterior disc osteophyte complex is identified measuring 3.5 mm with relatively reduced intervertebral disc space resulting in mild anterior thecal sac indentation and moderate left and mild right neural foraminal stenosis. L5- S1: There is no significant disc herniation or neural foraminal narrowing visualized. Central canal is unremarkable. Nerve roots are normal. No retro paraspinal soft tissue masses. No developmental canal stenosis. IMPRESSION: 1. Transitional vertebra identified which is taken as L5 for the purpose of reporting. 2. Straightening of the lumbar spine likely secondary to muscular spasm with mild lumbar spondylosis. 3. Degenerative changes are most marked at L4-L5 level as detailed above. If clinically indicated, an MRI of the lumbar spine is recommended for further evaluation. 4. Appearances are grossly stable since prior examination. Electronically Signed by: Fran Prieto MD. (09/19/2023 00:12:39 EDT)
[2023-09-19 00:38] VITALS: BP 147/90; PULSE 82; RESP 20
[2023-09-19] MEDS ORDERED: NORCO 5/325 MG ONE (00:38)
[2023-09-19] MEDS: NORCO 5/325 MG PO ONE (00:40)
[2023-09-19 00:44] VITALS: O2SAT 97
== END 2023-09-19 01:03 | disposition home or self-care (01) ==
LOC: ED 22:33
DX: M54.31 Sciatica, right side (principal); M54.50 Low back pain, unspecified
CPT/HCPCS: 72131; 72192; 96372; 99283; J1885; A9270-GY